=== PATIENT | female | born 1975 | race African-American/Black ===

== ENCOUNTER 2016-06-14 13:59 | Emergency (ER) | payer OTHER ==
[~2016-06-14] VITALS: Ht 170.2 cm; Wt 59.5 kg
[2016-06-14 14:02] VITALS: BP 180/98; PULSE 92; RESP 19; TEMP 97.8; O2SAT 100
[2016-06-14 14:35] VITALS: BP 178/100
[2016-06-14 15:32] VITALS: BP 148/95; PULSE 77; RESP 16; O2SAT 99
--- NOTE | 2016-06-14 15:52 | PD ---
HPI Chief Complaint: Hypertension Time Seen by Provider: 15:52 Travel History International Travel<30 days: No Contact w/Intl Traveler<30days: No Traveled to known affect area: No History of Present Illness HPI 40-year-old female presents to the emergency department with complaint of high blood pressure causing headache, nausea, vomiting. She was told by her primary care provider to come to the emergency department for evaluation of high blood pressure. She was just started on blood pressure medication, amlodipine, today. She has history of migraine headaches and was on Topamax, which her primary care provider took her off of and she last took it on Friday. Her headache is similar to past migraine headaches. Her headache is frontal and pounding in sensation. It gradually onset started last night with worsening approximately 3 AM this morning. Had nausea and vomiting prior to being placed in the ER room. She denies nausea at this time. Denies fever, chills. Reports photophobia, phonophobia, and sensitivity to smell. Denies focal deficits or weakness. Primary care provider is Dr. Romero. History of migraines and hypertension. No known allergies. PFSH Past Medical History Hypertension: Yes Tetanus Vaccination: < 5 Years ?: Not LMP: 06/12/16 Social History Alcohol Use: No Tobacco Use: No Substance Use: No Allergies-Medications (Allergen,Severity, Reaction): Coded Allergies: No Known Allergies (Unverified , 06/14/16) Reported Meds & Prescriptions Reported Meds & Active Scripts Active Zofran Odt (Ondansetron Odt) 4 Mg Tab 4 Mg SL Q8HR PRN Topamax (Topiramate) 25 Mg Tab 25 Mg PO BID Review of Systems Except as stated in HPI: all other systems reviewed are Neg Physical Exam Narrative GENERAL: Well-nourished, well-developed patient, in no acute distress SKIN: Warm and dry. HEAD: Atraumatic. Normocephalic. Facial droop noted. Tongue midline. EYES: Pupils equal and round at 4 mm with brisk reaction. No scleral icterus. No injection or drainage. PERRLA. EOMI. ENT: Mucosa pink and moist. Airway patent. NECK: Trachea midline. No lymphadenopathy. CARDIOVASCULAR: Regular rate and rhythm. No murmur appreciated. RESPIRATORY: No accessory muscle use. Clear to auscultation. Breath sounds equal bilaterally. GASTROINTESTINAL: Abdomen soft, non-tender, nondistended. Hepatic and splenic margins not palpable. Bowel sounds are active 4 quadrants. MUSCULOSKELETAL: No obvious deformities. No clubbing. No cyanosis. No edema. NEUROLOGICAL: Awake and alert. Oriented 3. No obvious cranial nerve deficits. Motor grossly within normal limits. Normal speech. No ataxia. No mid -line drift. Moves all extremities. 5/5 strength to all extremities. PSYCHIATRIC: Appropriate mood and affect; insight and judgment normal. Data Data Last Documented VS Vital Signs Date Time Temp Pulse Resp B/P Pulse Ox O2 Delivery O2 Flow Rate FiO2 06/14/16 15:32 77 16 148/95 99 06/14/16 14:02 97.8 Orders Ketorolac Inj (Toradol Inj) (06/14/16 16:00) Ondansetron Odt (Zofran Odt) (06/14/16 16:00) Diphenhydramine Inj (Benadryl Inj) (06/14/16 16:00) [facility] Medical Decision Making Medical Screen Exam Complete: Yes Emergency Medical Condition: Yes Medical Record Reviewed: Yes Differential Diagnosis Migraine headache, hypertension, acute headache Narrative Course 40-year-old female with migraine headache. She has history of migraine headaches and her headache is consistent with past migraines. She was just recently was taken off her Topamax on Friday by her primary care provider and started on amlodipine for high blood pressure. Neuro exam is unremarkable. I spoke with Dr. Shipman, my attending physician, and she agrees the patient can be treated for migraine headache and discharged home. Patient is comfortable with this plan. Topamax will be prescribed for home. Topamax and Zofran prescribed for home. Patient verbalizes understanding and agreement with treatment plan. Patient is medically cleared and stable for discharge. Discussed reasons to return to the emergency department. Instructed patient to follow up with primary care provider. Patient agrees with treatment plan. The patients vital signs are stable and the patient is stable for outpatient follow- up and treatment. Patient discharged home, stable and in no acute distress. Diagnosis Primary Impression: Migraine headache Qualified Code: G43.109 - Migraine with aura and without status migrainosus, not intractable Referrals: Primary Care Physician Patient Instructions: General Instructions, Migraine Headache (ED) Additional Instructions: Ibuprofen or Tylenol as directed and as needed to reduce headache Get plenty of rest: do not over sleep rest and relax in a dark, quiet room as needed Place an ice pack on the back of her neck to reduce head pain as needed Keep a headache diary of what triggers her headaches and what treatment is most effective Avoid identifiable triggers Avoid smoking, alcohol and caffeine consumption Reduce stress Follow-up with primary care provider within 1-2 days Follow-up with neurology Return immediately to the emergency department with worsening symptoms Med/Other Pt SpecificInfo: Prescription(s) given Scripts Ondansetron Odt (Zofran Odt)4 Mg Tab4 Mg SL Q8HR PRN (Nausea/Vomiting) #12 TAB Ref 0 Prov:Adwoa Wilcox 06/14/16 Topiramate (Topamax)25 Mg Tab25 Mg PO BID #60 TAB Ref 0 Prov:Adwoa Wilcox 06/14/16 Disposition: 01 DISCHARGE HOME Condition: Stable Adwoa Wilcox Jun 14, 2016 15:52
[2016-06-14] MEDS ORDERED: ONDANSETRON ODT 4 MG TAB PO/SL ONE (16:00)
[2016-06-14] MEDS ORDERED: diphenhydrAMINE HCL 50 MG/ML VIAL IM ONE (16:00)
[2016-06-14] MEDS ORDERED: KETOROLAC TROMETHAMINE 60 MG/2 ML (IM) VIAL IM ONE (16:00)
--- NOTE | 2016-06-14 16:01 | PD ---
Data Data Last Documented VS Vital Signs Date Time Temp Pulse Resp B/P Pulse Ox O2 Delivery O2 Flow Rate FiO2 06/14/16 15:32 77 16 148/95 99 06/14/16 14:02 97.8 Orders Ketorolac Inj (Toradol Inj) (06/14/16 16:00) Ondansetron Odt (Zofran Odt) (06/14/16 16:00) Diphenhydramine Inj (Benadryl Inj) (06/14/16 16:00) MDM Supervised Visit with IRMA: Yes Differential Diagnosis I, Dr. Johnson, have reviewed the advance practice practioner's documentation and am in agreement, met with the patient face to face, made the diagnosis, and the medical decision making was done by me. *My assessment and Findings: 40-year-old migraineur here with complaint of headache. Patient recently found to PCP and was taken off of her Topamax for high blood pressure and started on Norvasc. She was well controlled on Topamax. Since now she has had a typical migraine headache with photophobia, phonophobia, nausea and vomiting. She was noted to be hypertensive and was unsure whether this was related. Patient's blood pressure upon repeat is now normalized into the 140s systolic. Her neurologic examination is unremarkable and she sitting and did leave the room. Per her history this is typical of her migraines. She doesn't have any focal neuro deficit to warrant cerebral imaging. Patient was treated with symptomatic management for migraine headache and resumed on her Topamax and discharged home. Diagnosis Primary Impression: Migraine headache Qualified Code: G43.109 - Migraine with aura and without status migrainosus, not intractable Additional Instruction: Topamax as prescribed. Follow-up with PCP for blood pressure management. Med/Other Pt SpecificInfo: Prescription(s) given Disposition: DISCHARGE HOME Condition: Stable Kanika Johnson MD Jun 14, 2016 16:01
[2016-06-14] MEDS ORDERED: ZOFR4TAB3 SL (16:18)
[2016-06-14] MEDS ORDERED: TOPA25TA8 PO (16:18)
== END 2016-06-14 17:04 | disposition home or self-care (01) ==
LOC: NEPD 13:59
DX: G43.109 Migraine with aura, not intractable, without status migrainosus (principal); I10 Essential (primary) hypertension; Z86.69 Personal history of other diseases of the nervous system and sense organs
CPT/HCPCS: 96372; 99283; J1200; J1885

== ENCOUNTER 2017-06-23 15:17 | Emergency (ER) | payer OTHER ==
[~2017-06-23] VITALS: Ht 170.2 cm; Wt 60.0 kg
[~2017-06-23 15:17] MED LIST: TOPI25 PO; ZOFR4TAB3 SL
[2017-06-23 15:25] VITALS: BP 150/74; PULSE 65; RESP 16; TEMP 97.9; O2SAT 100
[2017-06-23] MEDS ORDERED: AMLO5TAB2 PO (15:49)
[2017-06-23] MEDS ORDERED: SPRI28TA PO (15:49)
[2017-06-23] MEDS ORDERED: DEXAMETHASONE SOD PHOS 20 MG/5 ML VIAL IV PUSH ONE (16:00)
[2017-06-23] MEDS ORDERED: SODIUM CHLORIDE 0.9% FLUSH 10 ML FLUSH IVF PRN (16:00)
[2017-06-23] MEDS ORDERED: METOCLOPRAMIDE HCL 10 MG/2 ML VIAL IVP ONE (16:00)
[2017-06-23] MEDS ORDERED: diphenhydrAMINE HCL 50 MG/ML VIAL IVP ONE (16:00)
--- NOTE | 2017-06-23 16:09 | PD ---
HPI Chief Complaint: Headache Time Seen by Provider: 15:45 Travel History International Travel<30 days: No Contact w/Intl Traveler<30days: No Traveled to known affect area: No History of Present Illness HPI Patient is a 41-year-old female with history of hypertension as well as migraines, presents the emergency room with complaints of headache. Patient reports that since Friday (2 days ago), she has had an increased pressure behind her right eye. Reports that pain was initially to the front her head, reports that it felt that it may have been a migraine headache as she has had these in the past. Patient reports that she also stopped taking her amlodipine 5mg on May 27 as she didn't like the side effects and thought that her blood pressure may be high causing her to have these symptoms. Reports that she had her blood pressure checked at a local store and noted the blood pressure to be with systolics in the 190s. Patient did call her primary care doctor yesterday she did take 2 doses of her blood pressure medication yesterday. Patient reports that the headache is better today, reports that it is more localized behind her right eye. Patient reports photophobia with nausea with no vomiting or symptoms. Patient denies any fever or chills, reports that her headache did improve since Friday. Patient was instructed to come to the emergency room for CT of her head and workup by her primary care doctor. [facility] Past Medical History Hypertension: Yes Migraines: Yes Tetanus Vaccination: < 5 Years Influenza Vaccination: No ?: Not LMP: 06/15/17 Past Surgical History Surgical History: No Previous Surgery Social History Alcohol Use: No Tobacco Use: No Substance Use: No Allergies-Medications (Allergen,Severity, Reaction): Coded Allergies: No Known Allergies (Unverified Adverse Reaction, Unknown, 06/23/17) Reported Meds & Prescriptions Reported Meds & Active Scripts Active Topamax (Topiramate) 25 Mg Tab 25 Mg PO BID Reported Sprintec 28 (Norgestimate-Ethinyl Estradiol) 0.25-35 mg-Mcg Tab 1 Tab PO DAILY Amlodipine (Amlodipine Besylate) 5 Mg Tab 5 Mg PO DAILY Review of Systems General / Constitutional: No: Fever Eyes: No: Visual changes HENT: Positive: Headaches, Lightheadedness, No: Vertigo, Sore Throat, Neck Pain Cardiovascular: No: Chest Pain or Discomfort Respiratory: No: Shortness of Breath Gastrointestinal: No: Abdominal Pain Genitourinary: No: Dysuria Musculoskeletal: No: Pain Skin: No Rash Neurologic: Positive: Headache, No: Weakness, Dizziness, Tremor, Ataxia, Change in Mentation, Slurred Speech Psychiatric: No: Depression Endocrine: No: Polydipsia Hematologic/Lymphatic: No: Easy Bruising Physical Exam Narrative GENERAL: NAD SKIN: Focused skin assessment warm/dry. HEAD: Atraumatic. Normocephalic. EYES: Pupils equal and round. No scleral icterus. No injection or drainage. ENT: No nasal bleeding or discharge. Mucous membranes pink and moist. NECK: Trachea midline. No JVD. CARDIOVASCULAR: Regular rate and rhythm. No murmur appreciated. RESPIRATORY: No accessory muscle use. Clear to auscultation. Breath sounds equal bilaterally. GASTROINTESTINAL: Abdomen soft, non-tender, nondistended. Hepatic and splenic margins not palpable. MUSCULOSKELETAL: No obvious deformities. No clubbing. No cyanosis. No edema. NEUROLOGICAL: Awake and alert. No obvious cranial nerve deficits. Motor grossly within normal limits. Normal speech. CN 2- 12 grossly intact with no neurological deficits PSYCHIATRIC: Appropriate mood and affect; insight and judgment normal. Data Data Last Documented VS Vital Signs Date Time Temp Pulse Resp B/P (MAP) Pulse Ox O2 Delivery O2 Flow Rate FiO2 06/23/17 17:05 69 14 145/86 (105) 100 Room Air 06/23/17 15:25 97.9 Orders Orders Complete Blood Count With Diff (06/23/17 15:58) Basic Metabolic Panel (Bmp) (06/23/17 15:58) Prothrombin Time / Inr (Pt) (06/23/17 15:58) Act Partial Throm Time (Ptt) (06/23/17 15:58) Ct Brain W/O Iv Contrast(Rout) (06/23/17 15:58) Ecg Monitoring (06/23/17 15:58) Iv Access Insert/Monitor (06/23/17 15:58) Oximetry (06/23/17 15:58) Sodium Chloride 0.9% Flush (Ns Flush) (06/23/17 16:00) Diphenhydramine Inj (Benadryl Inj) (06/23/17 16:00) Metoclopramide Inj (Reglan Inj) (06/23/17 16:00) Dexamethasone Inj (Decadron Inj) (06/23/17 16:00) Ed Urine Pregnancytest Poc (06/23/17 15:58) Labs Laboratory Tests Test 06/23/17 16:10 White Blood Count 7.0 TH/MM3 Red Blood Count 5.08 MIL/MM3 Hemoglobin 13.2 GM/DL Hematocrit 42.0 % Mean Corpuscular Volume 82.7 FL Mean Corpuscular Hemoglobin 26.1 PG Mean Corpuscular Hemoglobin Concent 31.5 % Red Cell Distribution Width 14.7 % Platelet Count 413 TH/MM3 Mean Platelet Volume 7.6 FL Neutrophils (%) (Auto) 81.4 % Lymphocytes (%) (Auto) 11.0 % Monocytes (%) (Auto) 3.6 % Eosinophils (%) (Auto) 0.7 % Basophils (%) (Auto) 3.3 % Neutrophils # (Auto) 5.7 TH/MM3 Lymphocytes # (Auto) 0.8 TH/MM3 Monocytes # (Auto) 0.3 TH/MM3 Eosinophils # (Auto) 0.0 TH/MM3 Basophils # (Auto) 0.2 TH/MM3 CBC Comment DIFF FINAL Differential Comment Prothrombin Time 10.7 SEC Prothromb Time International Ratio 1.1 RATIO Activated Partial Thromboplast Time 24.5 SEC Blood Urea Nitrogen 10 MG/DL Creatinine 0.97 MG/DL Random Glucose 89 MG/DL Calcium Level 9.5 MG/DL Sodium Level 136 MEQ/L Potassium Level 3.7 MEQ/L Chloride Level 107 MEQ/L Carbon Dioxide Level 22.2 MEQ/L Anion Gap 7 MEQ/L Estimat Glomerular Filtration Rate 76 ML/MIN [facility] Medical Decision Making Medical Screen Exam Complete: Yes Emergency Medical Condition: Yes Medical Record Reviewed: Yes Interpretation(s) Vital Signs Date Time Temp Pulse Resp B/P (MAP) Pulse Ox O2 Delivery O2 Flow Rate FiO2 06/23/17 15:25 97.9 65 16 150/74 (99) 100 Differential Diagnosis migraine, hypertension, ich Narrative Course 41 year old female with history of migraine and hypertension for evaluation of hypertension as well as headache since friday. Patient reports that patient stopped taking her amlodipine on May 27, she did take 2 doses of her medications yesterday. BP today 150/74. Patient reports that headache has improved after she took her blood pressure medications, headache is now localized behind the front of her right eye. Patient reports that now she feels as if she is having a migraine headache. Migraine cocktail ordered for patient. During the course of the patients emergency department visit, the patients history, examination, and differential diagnosis were reviewed with the patient. The patient was placed on a property assessment monitor with oximetry and frequent blood pressure monitoring. The patient had an IV access obtained and blood work sent for analysis. The patient was initially provided IV reglan, dexamethasone, benadryl The patients laboratory studies were reviewed and remarkable for CBC & BMP Diagram 06/23/17 16:10 Calcium Level 9.5 Radiology studies were reviewed and remarkable for Last Impressions Head CT 06/23/17 3248 Signed Impressions: Service Date/Time: Friday, June 23, 2017 16:54 - CONCLUSION: Negative for an acute process. Everardo Diaz MD FACR Patient reevaluated, patient reports that she has resolution of headache at this time. I reviewed all labs and all studies with patient in detail, patient will follow up with her primary care doctor and will return to the emergency room as needed. Discussed importance of medication compliance with patient. Diagnosis Primary Impression: Migraine headache Qualified Codes: G43.909 - Migraine, unspecified, not intractable, without status migrainosus Patient Instructions: General Instructions Additional Instructions: Please provide patient with a copy of their lab work and studies at discharge* * Please follow up with your primary care doctor in 2-3 days Return to the ER if symptoms worsen or progress Return to the ER as needed Please take all your medications as prescribed including your blood pressure medications Disposition: 01 DISCHARGE HOME Condition: Stable Meme Diehl DO Jun 23, 2017 16:09
[2017-06-23 16:25] LABS: AUTOMATED NEUTROPHIL # 5.7 TH/MM3 (1.8-7.7); BASOPHIL # 0.2 TH/MM3 (0-0.2); BASOPHIL % 3.3 % (0.0-2.0); EOSINOPHIL % 0.7 % (0.0-4.0); HEMOGLOBIN 13.2 GM/DL (11.6-15.3); LYMPHOCYTE # 0.8 TH/MM3 (1.0-4.8); MEAN CELL VOLUME 82.7 FL (80.0-100.0); MEAN CORPUSCULAR HEMOGLOBIN 26.1 PG (27.0-34.0); MEAN CORPUSCULAR HGB CONC 31.5 % (32.0-36.0); MEAN PLATELET VOLUME 7.6 FL (7.0-11.0); MONO % 3.6 % (0.0-8.0); MONOCYTE # 0.3 TH/MM3 (0-0.9); NEUT % 81.4 % (16.0-70.0); PLATELET COUNT 413 TH/MM3 (150-450); RED BLOOD COUNT 5.08 MIL/MM3 (4.00-5.30); RED CELL DISTRIBUTION WIDTH 14.7 % (11.6-17.2)
[2017-06-23 16:42] LABS: BICARBONATE 22.2 MEQ/L (21.0-32.0); CALCIUM 9.5 MG/DL (8.5-10.1)
[2017-06-23 16:44] LABS: INTERNATIONAL NORMALIZED RATIO 1.1 RATIO; PROTHROMBIN TIME - PATIENT 10.7 SEC (9.8-11.6)
[2017-06-23 16:45] VITALS: O2SAT 99
[2017-06-23 16:46] LABS: CREATININE 0.97 MG/DL (0.50-1.00)
[2017-06-23 17:05] VITALS: BP 145/86; PULSE 69; RESP 14; O2SAT 100
--- NOTE | 2017-06-23 17:17 | RADRPT ---
EXAM DATE/TIME: 06/23/2017 16:54 [facility] COMPARISON: No previous studies available for comparison. INDICATIONS : Headache, hypertension and vomiting. RADIATION DOSE: 58.08 CTDIvol (mGy) MEDICAL HISTORY : Hypertension. SURGICAL HISTORY : None. ENCOUNTER: Initial ACUITY: 2 days PAIN SCALE: 9/10 LOCATION: cranial TECHNIQUE: Multiple contiguous axial images were obtained of the head. Using automated exposure control and adj ustment of the mA and/or kV according to patient size, radiation dose was kept as low as reasonably a chievable to obtain optimal diagnostic quality images. DICOM format image data is available electro nically for review and comparison. FINDINGS: CEREBRUM: The ventricles are normal for age. No evidence of midline shift, mass lesion, hemorrhage or acute in farction. No extra-axial fluid collections are seen. POSTERIOR FOSSA: The cerebellum and brainstem are intact. The 4th ventricle is midline. The cerebellopontine angle i s unremarkable. EXTRACRANIAL: The visualized portion of the orbits is intact. SKULL: The calvaria is intact. No evidence of skull fracture. CONCLUSION: Negative for an acute process. Everardo Diaz MD FACR on June 23, 2017 at 17:15 Board Certified Radiologist. This report was verified electronically.
== END 2017-06-23 17:45 | disposition home or self-care (01) ==
LOC: PHED 15:17
DX: G43.909 Migraine, unspecified, not intractable, without status migrainosus (principal); I10 Essential (primary) hypertension
CPT/HCPCS: 70450; 80048; 84703; 85025; 85610; 85730; 96374; 96375; 99284; J1100; J1200; J2765